=== PATIENT | female | born 1995 | race Hispanic/Latino ===

== ENCOUNTER 2017-09-12 12:14 | Emergency (ER) | payer SELFPAY ==
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
[2017-09-12 13:55] LABS: Urine Blood TRACE (NEG); Urine Glucose NEGATIVE (NEG); Urine Protein NEGATIVE (NEG); Urine pH 6.5 (5.0-7.0)
[2017-09-12] MEDS ORDERED: ACETAMINOPHEN 500 MG TAB ONE (14:22)
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
[2017-09-12 16:14] VITALS: BP 122/76; TEMP 98; O2SAT 99
== END 2017-09-12 16:03 | disposition home or self-care (01) ==
LOC: ER 12:14
DX: S00.90XA Unspecified superficial injury of unspecified part of head, initial encounter (principal); V49.40XA Driver injured in collision with unspecified motor vehicles in traffic accident, initial encounter
CPT/HCPCS: 70450; 81003; 81025; 99285

== ENCOUNTER 2019-04-19 21:06 | Emergency (ER) | payer BC ==
[2019-04-19] MEDS ORDERED: LIDOCAINE 4% PATCH ONE (21:40)
--- NOTE | 2019-04-19 21:43 | EDPHYS ---
Physician Documentation [facility] Name: Kami Shen Age: 24 yrs Sex: Female : 1995 Arrival Date: 04/19/2019 Time: 21:10 Bed 8 Private MD: ED Physician López Pritchett HPI: 04/18 21:18 This 24 yrs old Female presents to ER via Ambulatory with complaints of Low kb Back Pain. 21:18 The patient presents with pain that is acute, with no known mechanism of injury. The kb symptoms are located in the right low back. The pain does not radiate. The problem was sustained without known cause. Onset: The symptoms/episode began/occurred 3 day(s) ago. Modifying factors: The patient symptoms are alleviated by nothing, the patient symptoms are aggravated by any movement. Associated signs and symptoms: Pertinent positives: none. Severity of symptoms: At their worst the symptoms were moderate, in the emergency department the symptoms are unchanged. The patient has not experienced similar symptoms in the past. The patient has not recently seen a physician. 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 - Social history:: Smoking status: Patient denies any tobacco usage or history of. ROS: 21:16 Constitutional: Negative for fever, chills, and weight loss, ENT: Negative for injury, kb pain, and discharge, Neck: Negative for injury, pain, and swelling, Cardiovascular: Negative for chest pain, palpitations, and edema, Respiratory: Negative for shortness of breath, cough, wheezing, and pleuritic chest pain, Abdomen/GI: Negative for abdominal pain, nausea, vomiting, diarrhea, and constipation, : Negative for injury, bleeding, discharge, and swelling, MS/Extremity: Negative for injury and deformity, Skin: Negative for injury, rash, and discoloration, Neuro: Negative for headache, weakness, numbness, tingling, and seizure. 21:16 Back: Positive for pain at rest, pain with movement, of the right low back. Exam: 21:16 Constitutional: This is a well developed, well nourished patient who is awake, alert, kb and in no acute distress. Head/Face: Normocephalic, atraumatic. ENT: Nares patent. No nasal discharge, no septal abnormalities noted. Tympanic membranes are normal and external auditory canals are clear. Oropharynx with no redness, swelling, or masses, exudates, or evidence of obstruction, uvula midline. Mucous membranes moist. Neck: Trachea midline, no thyromegaly or masses palpated, and no cervical lymphadenopathy. Supple, full range of motion without nuchal rigidity, or vertebral point tenderness. No Meningismus. Chest/axilla: Normal chest wall appearance and motion. Nontender with no deformity. No lesions are appreciated. Cardiovascular: Regular rate and rhythm with a normal S1 and S2. No gallops, murmurs, or rubs. Normal PMI, no JVD. No pulse deficits. Respiratory: Lungs have equal breath sounds bilaterally, clear to auscultation and percussion. No rales, rhonchi or wheezes noted. No increased work of breathing, no retractions or nasal flaring. Abdomen/GI: Soft, non-tender, with normal bowel sounds. No distension or tympany. No guarding or rebound. No evidence of tenderness throughout. Skin: Warm, dry with normal turgor. Normal color with no rashes, no lesions, and no evidence of cellulitis. MS/ Extremity: Pulses equal, no cyanosis. Neurovascular intact. Full, normal range of motion. Neuro: Awake and alert, GCS 15, oriented to person, place, time, and situation. Cranial nerves II-XII grossly intact. Motor strength 5/5 in all extremities. Sensory grossly intact. Cerebellar exam normal. Normal gait. 21:16 Back: pain, that is moderate, of the right low back, ROM is normal, normal spinal alignment noted. Vital Signs: 21:15 BP 130 / 91; Pulse 90; Resp 17 S; Temp 97.5(TE); Pulse Ox 100% on R/A; Weight 104.33 kg ca1 (R); Height 5 ft. 3 in. (160.02 cm) (R); Pain 8/10; 21:42 BP 118 / 77; Pulse 89; Resp 17; Temp 98; Pulse Ox 98% on R/A; rv 21:15 Body Mass Index 40.74 (104.33 kg, 160.02 cm) ca1 MDM: 21:11 Patient medically screened. kb 21:14 Data reviewed: vital signs, nurses notes. Data interpreted: Pulse oximetry: on room air kb is 100 %. Interpretation: normal. 21:33 Counseling: I had a detailed discussion with the patient and/or guardian regarding: the kb historical points, exam findings, and any diagnostic results supporting the discharge/admit diagnosis, lab results, the need for outpatient follow up, a family practitioner, to return to the emergency department if symptoms worsen or persist or if there are any questions or concerns that arise at home. 04/18 21:31 Order name: Urine Dipstick--Ancillary (enter results) [facility] 04/18 21:31 Order name: Urine --Ancillary (enter results) [facility] 04/18 21:14 Order name: Urine Test (obtain specimen); Complete Time: 21:30 kb 04/18 21:14 Order name: Urine Dipstick-Ancillary (obtain specimen); Complete Time: 21:30 kb Administered Medications: 21:41 Drug: Lidoderm 5 % (700 mg/patch) 1 patches Route: Topical; Site: affected area; rv 21:42 Follow up: Response: No adverse reaction rv Disposition: 04/19 06:05 Co-signature as Attending Physician, López Pritchett MD I agree with the assessment and 4 plan of care. Disposition: 04/19/19 21:35 Discharged to Home. Impression: Low back pain. - Condition is Stable. - Discharge Instructions: Back Injury Prevention, [id number], Back Pain, Adult, Vpak-[id number], Back Exercises, [id number]. - Prescriptions for Cyclobenzaprine 10 mg Oral Tablet - take 1 tablet by ORAL route every 8 hours As needed; 21 tablet. Diclofenac Sodium 75 mg Oral Tablet, Delayed Release (E.C.) - take 1 tablet by ORAL route 2 times per day As needed; 30 tablet. - Medication Reconciliation Form, Thank You Letter, Antibiotic Education, Prescription Opioid Use form. - Follow up: Emergency Department; When: As needed; Reason: Worsening of condition. Follow up: Private Physician; When: 2 - 3 days; Reason: Recheck today's complaints, Continuance of care, Re-evaluation by your physician. Signatures: Dispatcher [employer] EDAshley Roach, RIVET TESTER-C RIVET TESTER-Ckb López Pritchett MD MD tw4 Jonny Faye, RN RN rv Kayla Campuzano RN RN ca1 Corrections: (The following items were deleted from the chart) 04/18 21:44 21:35 04/19/2019 21:35 Discharged to Home. Impression: Low back pain. Condition is rv Stable. Forms are Medication Reconciliation Form, Thank You Letter, Antibiotic Education, Prescription Opioid Use. Follow up: Emergency Department; When: As needed; Reason: Worsening of condition. Follow up: Private Physician; When: 2 - 3 days; Reason: Recheck today's complaints, Continuance of care, Re-evaluation by your physician. kb
--- NOTE | 2019-04-19 21:43 | ER ---
Nurse's Notes [facility] Name: Kami Shen Age: 24 yrs Sex: Female : 1995 Arrival Date: 04/19/2019 Time: 21:10 Bed 8 Private MD: Diagnosis: Low back pain Presentation: 04/18 21:15 Chief complaint: Patient states: Low back pain started 3 days ago. More on the R side. ca1 Denies urinary s/s and injury. Coronavirus screen: The patient has NOT traveled to a country currently being monitored by the [facility] within the last 14 days. The patient has NOT had contact with any known and/or suspected case of coronavirus. Ebola Screen: Patient negative for fever greater than or equal to 101.5 degrees Fahrenheit, and additional compatible Ebola Virus Disease symptoms Patient denies exposure to infectious person. Patient denies travel to an Ebola-affected area in the 21 days before illness onset. No symptoms or risks identified at this time. Initial Sepsis Screen: Does the patient meet any 2 criteria? No. Patient's initial sepsis screen is negative. Does the patient have a suspected source of infection? No. Patient's initial sepsis screen is negative. Risk Assessment: Do you want to hurt yourself or someone else? Patient reports no desire to harm self or others. Onset of symptoms was April 19, 2019. 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 - Social history:: Smoking status: Patient denies any tobacco usage or history of. Screenin:43 Abuse screen: Denies threats or abuse. Denies injuries from another. Nutritional rv screening: No deficits noted. Tuberculosis screening: No symptoms or risk factors identified. Fall Risk None identified. Assessment: 21:42 General: Appears in no apparent distress. Behavior is calm, cooperative. Pain: rv Complains of pain in right low back. Neuro: Level of Consciousness is awake, alert, obeys commands, Oriented to person, place, time, situation. Cardiovascular: Patient's skin is warm and dry. Respiratory: Airway is patent. Derm: Skin is intact. Vital Signs: 21:15 BP 130 / 91; Pulse 90; Resp 17 S; Temp 97.5(TE); Pulse Ox 100% on R/A; Weight 104.33 kg ca1 (R); Height 5 ft. 3 in. (160.02 cm) (R); Pain 8/10; 21:42 BP 118 / 77; Pulse 89; Resp 17; Temp 98; Pulse Ox 98% on R/A; rv 21:15 Body Mass Index 40.74 (104.33 kg, 160.02 cm) ca1 ED Course: 21:10 Patient arrived in ED. cl3 21:10 [facility]C [facility] kb 21:10 López Pritchett MD is Attending Physician. kb 21:17 Jonny Faye, RN is Primary Nurse. rv 21:17 Triage completed. ca1 21:18 Arm band placed on right wrist. ca1 21:30 Patient has correct armband on for positive identification. Pulse ox on. NIBP on. rv 21:43 No provider procedures requiring assistance completed. Patient did not have IV access rv during this emergency room visit. Administered Medications: 21:41 Drug: Lidoderm 5 % (700 mg/patch) 1 patches Route: Topical; Site: affected area; rv 21:42 Follow up: Response: No adverse reaction rv Outcome: 21:35 Discharge ordered by MD. kb 21:43 Discharged to home ambulatory, with family. rv 21:43 Condition: good 21:43 Discharge instructions given to patient, Instructed on discharge instructions, follow up and referral plans. medication usage, Demonstrated understanding of instructions, follow-up care, medications, Prescriptions given X 2. 21:44 Patient left the ED. rv Signatures: Ashley Gore FNP-C FNP-Jonny Love, SUSAN RN rv Kayla Campuzano RN RN ca1 Lewis, Charde cl3
[2019-04-19 22:03] VITALS: BP 118/77; TEMP 98; O2SAT 98
[2019-04-19 22:56] LABS: Urine Blood NEGATIVE (NEG); Urine Glucose NEGATIVE (NEG); Urine Protein NEGATIVE (NEG); Urine pH 7.5 (5.0-7.0)
== END 2019-04-19 21:44 | disposition home or self-care (01) ==
LOC: ER 21:06
DX: M54.5 Low back pain (principal)
CPT/HCPCS: 81003; 81025; 99283

== ENCOUNTER 2020-07-04 11:13 | Emergency (ER) | payer BC, SELFPAY ==
--- NOTE | 2020-07-04 14:30 | ER ---
Nurse's Notes [facility] Name: Kami Shen Age: 25 yrs Sex: Female : 1995 Arrival Date: 07/04/2020 Time: 11:17 Bed 23 Private MD: Diagnosis: Sprain of ankle Presentation: 07/04 11:21 Chief complaint: Patient states: Fell 2 weeks ago. Still has R ankle pain. Abrasion L ll1 leg that's healing well she states. Coronavirus screen: Client denies travel out of the [place] in the last 14 days. At this time, the client does not indicate any symptoms associated with coronavirus-19. Ebola Screen: Patient denies travel to an Ebola-affected area in the 21 days before illness onset. Initial Sepsis Screen: Does the patient meet any 2 criteria? HR > 90 bpm. No. Patient's initial sepsis screen is negative. Does the patient have a suspected source of infection? Yes: Bone or joint infection. Risk Assessment: Do you want to hurt yourself or someone else? Patient reports no desire to harm self or others. Onset of symptoms was June 20, 2020. 11:21 Method Of Arrival: Ambulatory ll1 11:21 Acuity: KAMINI 4 ll1 Historical: - Allergies: 11:23 PENICILLINS; ll1 11:23 peanuts; ll1 - PMHx: 11:23 None; ll1 - PSHx: 11:23 Tonsillectomy; ll1 - Immunization history:: Flu vaccine is up to date. - Social history:: Smoking status: Patient denies any tobacco usage or history of. Screenin:14 Abuse screen: Denies threats or abuse. Denies injuries from another. Nutritional tr6 screening: No deficits noted. Tuberculosis screening: No symptoms or risk factors identified. Fall Risk None identified. Fall in past 12 months (25 points). Assessment: 15:12 General: Appears in no apparent distress. Behavior is calm, cooperative, appropriate tr6 for age. Pain: Complains of pain in right ankle. Neuro: No deficits noted. Cardiovascular: No deficits noted. Respiratory: No deficits noted. GI: No deficits noted. : No deficits noted. EENT: No deficits noted. Derm: No deficits noted. Musculoskeletal: No deficits noted. Vital Signs: 11:21 BP 145 / 93; Pulse 97; Resp 16; Temp 97.6; Pulse Ox 100% ; Weight 108.86 kg; Height 5 ll1 ft. 3 in. (160.02 cm); Pain 8/10; 15:13 BP 112 / 81; Pulse 82; Resp 18; Pulse Ox 100% ; tr6 11:21 Body Mass Index 42.51 (108.86 kg, 160.02 cm) ll1 ED Course: 11:17 Patient arrived in ED. mr 11:22 Triage completed. ll1 11:23 Arm band placed on. ll1 14:09 Patricia Lopez, RN is Primary Nurse. tr6 14:09 García Anne PA is PHCP. jr8 14:09 Nathan Connor MD is Attending Physician. jr8 14:29 Cooper Hastings MD is Referral Physician. jr8 15:01 Ankle Right 3 View XRAY In Process Unspecified. EDMS 15:04 Crutch training done. Clayton wrap to right ankle. mh5 15:05 Pulse ox on. NIBP on. 5 15:14 Patient has correct armband on for positive identification. Bed in low position. Call tr6 light in reach. Side rails up X 1. 15:14 No provider procedures requiring assistance completed. Patient did not have IV access tr6 during this emergency room visit. Administered Medications: No medications were administered Outcome: 14:29 Discharge ordered by . jr8 15:14 Discharged to home ambulatory, with crutches. tr6 15:14 Condition: good 15:14 Discharge instructions given to patient, Instructed on discharge instructions, follow up and referral plans. medication usage, safety practices, Demonstrated understanding of instructions, follow-up care, crutch walking. 15:15 Patient left the ED. tr6 Signatures: Dispatcher [employer] [facility] Amy Wiggins mr García Anne PA PA 8 Ashia Avendano 5 Thiago Mac RN RN 1 Patricia Lopez, SUSAN RN tr6
--- NOTE | 2020-07-04 14:30 | EDPHYS ---
Physician Documentation [facility] Name: Kami Shen Age: 25 yrs Sex: Female : 1995 Arrival Date: 07/04/2020 Time: 11:17 Bed 23 Private MD: ED Physician Nathan Connor HPI: 07/04 14:22 This 25 yrs old Female presents to ER via Ambulatory with complaints of Ankle jr8 pain. 14:22 The patient presents with decreased range of motion, pain, swelling, tenderness. The jr8 complaints affect the right ankle. Onset: The symptoms/episode began/occurred acutely, 1 week(s) ago. Modifying factors: The symptoms are alleviated by nothing. the symptoms are aggravated by movement, weight bearing. Associated signs and symptoms: The patient has no apparent associated signs or symptoms. Severity of symptoms: At their worst the symptoms were moderate, in the emergency department the symptoms are unchanged. The patient has not experienced similar symptoms in the past. The patient has not recently seen a physician. Stated that since she twisted and landed on ankle, she continues to have swelling and pain with ambulation . Historical: - Allergies: 11:23 PENICILLINS; ll1 11:23 peanuts; ll1 - PMHx: 11:23 None; ll1 - PSHx: 11:23 Tonsillectomy; ll1 - Immunization history:: Flu vaccine is up to date. - Social history:: Smoking status: Patient denies any tobacco usage or history of. ROS: 14:22 Constitutional: Negative for fever, chills, and weight loss, Neck: Negative for injury, jr8 pain, and swelling, Back: Negative for injury and pain. 14:22 MS/extremity: Positive for pain, swelling, tenderness, of the right ankle. 14:22 Skin: Positive for abrasion(s), of the left leg. 14:22 All other systems are negative. Exam: 14:22 Constitutional: This is a well developed, well nourished patient who is awake, alert, jr8 and in no acute distress. Cardiovascular: Regular rate and rhythm with a normal S1 and S2. No gallops, murmurs, or rubs. Normal PMI, no JVD. No pulse deficits. Respiratory: Lungs have equal breath sounds bilaterally, clear to auscultation and percussion. No rales, rhonchi or wheezes noted. No increased work of breathing, no retractions or nasal flaring. Neuro: Awake and alert, GCS 15, oriented to person, place, time, and situation. Cranial nerves II-XII grossly intact. Motor strength 5/5 in all extremities. Sensory grossly intact. 14:22 Musculoskeletal/extremity: Extremities: grossly normal except: noted in the right ankle: pain, swelling, tenderness, ROM: intact in all extremities, full active range of motion, full passive range of motion, limited active range of motion due to pain, limited passive range of motion due to pain. 14:22 Skin: injury, abrasion(s), small abrasion noted, of the left patellar region . Vital Signs: 11:21 BP 145 / 93; Pulse 97; Resp 16; Temp 97.6; Pulse Ox 100% ; Weight 108.86 kg; Height 5 ll1 ft. 3 in. (160.02 cm); Pain 8/10; 15:13 BP 112 / 81; Pulse 82; Resp 18; Pulse Ox 100% ; tr6 11:21 Body Mass Index 42.51 (108.86 kg, 160.02 cm) ll1 Procedures: 14:22 Splinting: Splint applied to right ankle using clayton wrap, applied by nurse. Examined by gema de, post splint application: neurovascular intact, 2+ distal pulses palpable, brisk capillary refill noted, Patient tolerated well. Crutch training provided to patient and/or family. Return demonstration given. MDM: 14:09 Patient medically screened. jr8 14:22 Data reviewed: vital signs, nurses notes, radiologic studies, plain films. Data jr8 interpreted: Pulse oximetry: on room air is 100 %. Interpretation: normal. Counseling: I had a detailed discussion with the patient and/or guardian regarding: the historical points, exam findings, and any diagnostic results supporting the discharge/admit diagnosis, radiology results, the need for outpatient follow up, a orthopedic surgeon, to return to the emergency department if symptoms worsen or persist or if there are any questions or concerns that arise at home. 07/04 13:14 Order name: Ankle Right 3 View XRAY kb 07/04 14:22 Order name: Crutches; Complete Time: 14:26 jr8 07/04 14:22 Order name: Clayton wrap-joint; Complete Time: 14:26 jr8 Administered Medications: No medications were administered Disposition: 16:23 Co-signature as Attending Physician, Nathan Connor MD. rn Disposition: 07/04/20 14:29 Discharged to Home. Impression: Sprain of ankle. - Condition is Stable. - Discharge Instructions: Ankle Sprain. - Medication Reconciliation Form, Thank You Letter, Antibiotic Education, Prescription Opioid Use form. - Follow up: Cooper Hastings MD; When: 1 week; Reason: If symptoms return, Recheck today's complaints, Continuance of care, Re-evaluation by your physician. - Problem is new. - Symptoms have improved. Signatures: Dispatcher [employer] EDMS Nathan Connor MD MD rn García Anne PA PA jr8 Thiago Mac RN RN ll1 Patricia Lopez RN RN tr6 Corrections: (The following items were deleted from the chart) 15:15 14:29 07/04/2020 14:29 Discharged to Home. Impression: Sprain of ankle. Condition is tr6 Stable. Forms are Medication Reconciliation Form, Thank You Letter, Antibiotic Education, Prescription Opioid Use. Follow up: Cooper Hastings; When: 1 week; Reason: If symptoms return, Recheck today's complaints, Continuance of care, Re-evaluation by your physician. Problem is new. Symptoms have improved. jr8
--- NOTE | 2020-07-04 15:32 | RAD REPORT ---
EXAM DESCRIPTION: RAD - Ankle Right 3 View - 07/04/2020 3:01 pm CLINICAL HISTORY: PAIN2 weeks earlier with persistent pain COMPARISON: Right ankle October 2012 FINDINGS: No fracture, dislocation or periosteal reaction. No joint effusion seen. No joint space na rrowing. Lateral soft tissue swelling is present. IMPRESSION: Soft tissue swelling with no right ankle fracture.
[2020-07-04 15:34] VITALS: TEMP 97.6; O2SAT 100
[2020-07-04 15:35] VITALS: BP 112/81
== END 2020-07-04 15:15 | disposition home or self-care (01) ==
LOC: ER 11:13
DX: S93.401A Sprain of unspecified ligament of right ankle, initial encounter (principal); X50.1XXA Overexertion from prolonged static or awkward postures, initial encounter; Z88.0 Allergy status to penicillin; Z91.010 Allergy to peanuts
CPT/HCPCS: 99283